=== PATIENT | male | born 1995 | race Two or more races ===

== ENCOUNTER 2017-08-17 13:58 | Emergency (ER) | payer OTHER ==
--- NOTE | 2017-08-17 14:03 | ED Physician Documentation ---
PD HPI LOWER EXT INJURY - Stated complaint Stated Complaint: R ANKLE INJURY - History obtained from History obtained from: Patient, EMS - History of Present Illness PD HPI LOW EXT INJURY LOCATION: Right, Ankle Type of injury: Fall, Twist (skateboarding and fell, landed right foot and had twisting of ankle. Pain and swelling. Unable to walk comfortably.) Where injury occurred: Street Timing - onset: Today Timing - duration: Hours Timing - details: Abrupt onset, Still present Improved by: Rest Worsened by: Moving, Palpating, Other (trying to walk) Associated symptoms: Swelling. No: Weakness, Numbness Contributing factors: No: Anticoagulated Similar symptoms before: Has not had sx before Recently seen: Not recently seen Review of Systems Skin: denies: Abrasion (s), Laceration (s) Musculoskeletal: reports: Joint pain, Joint swelling. denies: Neck pain, Back pain Neurologic: denies: Focal weakness, Numbness, Near syncope PD PAST MEDICAL HISTORY - Past Medical History Cardiovascular: None Respiratory: None Neuro: None Endocrine/Autoimmune: None - Present Medications Home Medications: Ambulatory Orders Medication Instructions Recorded Confirmed Ibuprofen [Motrin] 600 mg PO TID #30 tab 08/17/17 Tramadol HCl 50 mg PO Q6H PRN #20 tablet 08/17/17 - Allergies Allergies/Adverse Reactions: Allergies Allergy/AdvReac Type Severity Reaction Status Date / Time No Known Drug Allergies Allergy Verified 08/17/17 14:08 PD ED PE NORMAL - Vitals Vital signs reviewed: Yes - General General: Alert and oriented X 3, No acute distress, Well developed/nourished - HEENT HEENT: Atraumatic - Neck Neck: No bony TTP - Cardiac Cardiac: RRR, No murmur - Respiratory Respiratory: Clear bilaterally - Abdomen Abdomen: Soft, Non tender - Back Back: No spinal TTP - Derm Derm: Normal color, Warm and dry - Extremities Extremities: Other (right ankle with swelling and tenderness laterally. Minimal medially. Knee and hip are not tender with good ROM. ) - Neuro Neuro: Alert and oriented X 3 Eye Opening: Spontaneous Motor: Obeys Commands Results - Vitals Vitals: Oxygen O2 Source Room air - Rads (name of study) ankle right Radiology: Prelim report reviewed (tiny chip avulsion fractures distal fibula and talar dome), EMP read contemporaneously Procedures - Splint (location) right ankle Splint applied by: Tech Type of splint: Other (boot orthosis) Other: Patient tolerated well, No complications, Neurovascular intact, Crutches provided PD MEDICAL DECISION MAKING - ED course Complexity details: reviewed results (discussed the avulsion fractures and are treated/emblematic of torn ligaments. Could possibly need repair. To follow up with PCP/Ortho. ), considered differential, d/w patient Departure - Departure Disposition: 01 Home, Self Care Clinical Impression: High ankle sprain of right lower extremity Qualifiers: Encounter type: initial encounter Qualified Code(s): S93.431A - Sprain of tibiofibular ligament of right ankle, initial encounter Condition: Stable Record reviewed to determine appropriate education?: Yes Instructions: ED Sprain Ankle Follow-Up: MARGARITA Cunningham [Provider Group] Prescriptions: Ibuprofen [Motrin] 600 mg PO TID #30 tab Tramadol HCl 50 mg PO Q6H PRN #20 tablet PRN Reason: Pain Comments: You likely have a partial or fully torn ligaments of the ankle. This may take 3 or 4 weeks to heal at least. However you want to have it rechecked by your primary care or orthopedics in about 4-5 days when the swelling is gone down and it is hurting less to better assess that. Use the cast boot and crutches until follow-up. Ibuprofen 3 times a day for the next week. Add Tylenol or tramadol if needed for pain. Ice and elevate your ankle often. Follow-up with your primary care or orthopedics in about 4-5 days, call for an appointment. Forms: Activity restrictions Discharge Date/Time: 08/17/17 15:49
[2017-08-17] MEDS ORDERED: KETOROLAC 60 MG/2 ML VIAL IM STA (14:12)
[2017-08-17] MEDS ORDERED: ONDANSETRON ODT 4 MG TABLET TL STA (14:12)
[2017-08-17] MEDS ORDERED: HYDROcod/ACETAM 5/325 MG TABLET PO STA (14:16)
--- NOTE | 2017-08-17 14:44 | XRAY Report ---
EXAM: RIGHT ANKLE RADIOGRAPHY EXAM DATE: 08/17/2017 02:32 PM. CLINICAL HISTORY: Inversion injury. Right ankle pain and swelling. COMPARISON: None. TECHNIQUE: 3 views. FINDINGS: Bones: Tiny displaced chip avulsion fractures upper present arising from the tip of the right fibula. Tiny chip avulsion fractures present arising from the cephalad aspect of the talar neck. Joints: Normal. No effusion. No subluxations. The ankle mortise is normally aligned. Soft Tissues: Marked soft tissue swelling. IMPRESSION: 1. Tiny chip avulsion fractures from the right fibular tip and cephalad aspect of the right talar nec k. 2. Soft tissue swelling. [facility] Referring Provider Line: [phone] SITE ID: [id number]
[2017-08-17 15:52] VITALS: BP 123/65
== END 2017-08-17 15:49 | disposition home or self-care (01) ==
LOC: ED 13:58
DX: S93.431A Sprain of tibiofibular ligament of right ankle, initial encounter (principal); V00.131A Fall from skateboard, initial encounter; X50.9XXA Other and unspecified overexertion or strenuous movements or postures, initial encounter; Y93.51 Activity, roller skating (inline) and skateboarding
CPT/HCPCS: 73610; 96372; 99283; A9270; Q0162